=== PATIENT | female | born 1950 | race Caucasian/White ===

== ENCOUNTER 2017-03-13 12:00 | Emergency (ER) | payer SELFPAY ==
[2017-03-13 12:17] VITALS: O2SAT 96
--- NOTE | 2017-03-13 13:40 | C.PDOC ---
History Of Present Illness Tiara Arceo is a 66 year old female, with no significant past medical history, who presents to the emergency department complaining of swelling of lips and left side of face onset since last night. Patient reports she had a similar episode x3 months ago, but doesn't know what caused it then and is unsure what might have caused it this time. Patient denies any visual disturbances, rash, vesicles, neck pain, shortness of breath or difficulty swallowing. No further medical complaints. she has been on medication for blood pressure but this is unchanged for the past 4 years. PMD: None provided. Time Seen by Provider: 03/13/17 13:10 Chief Complaint (Nursing): Allergic Reaction History Per: Patient History/Exam Limitations: no limitations Onset/Duration Of Symptoms: Days (x1) Current Symptoms Are (Timing): Still Present Possible Cause: Unknown Associated Symptoms: Swelling (lips). denies: Skin Rash, Trouble Swallowing Past Medical History Reviewed: Historical Data, Nursing Documentation, Vital Signs Vital Signs: Last Vital Signs Temp 98.6 F 03/13/17 12:12 Pulse 75 03/13/17 12:12 Resp 20 03/13/17 12:12 BP 151/86 H 03/13/17 12:12 Pulse Ox 96 03/13/17 13:45 - Medical History PMH: HTN Surgical History: Cholecystectomy Family History: States: Unknown Family Hx - Social History Hx Tobacco Use: No Hx Alcohol Use: No Hx Substance Use: No Review Of Systems Eyes: Negative for: Vision Change ENT: Positive for: Mouth Swelling (lips). Negative for: Throat Swelling ( difficulty swallowing) Respiratory: Negative for: Shortness of Breath Musculoskeletal: Negative for: Neck Pain Skin: Negative for: Rash Physical Exam - Physical Exam Appears: Well, No Acute Distress Skin: Warm, Dry Head: Atraumatic, Normacephalic Eye(s): bilateral: Normal Inspection, PERRL, EOMI Ear(s): Bilateral: Normal Nose: Normal Oral Mucosa: Moist Tongue: Normal Appearing Lips: Swelling Throat: Normal Neck: Normal ROM, Supple Cardiovascular: Rhythm Regular, No Murmur Respiratory: Normal Breath Sounds (clear auscultation b/l), No Wheezing Gastrointestinal/Abdominal: Normal Exam, Soft, No Tenderness, No Guarding, No Rebound Back: Normal Inspection, No CVA Tenderness, No Vertebral Tenderness Extremity: Normal ROM, No Pedal Edema, No Deformity, No Swelling Neurological/Psych: Oriented x3 (alert) ED Course And Treatment - Laboratory Results Result Diagrams: 03/13/17 13:27 03/13/17 13:27 Lab Interpretation: No Acute Changes O2 Sat by Pulse Oximetry: 96 (RA) Pulse Ox Interpretation: Normal Progress Note: Patient treated with oral benadryl with some relief of symptoms. Reevaluation Time: 14:26 Reassessment Condition: Improved Medical Decision Making Medical Decision Making: Initial Impression: Allergic reaction Initial Plan: --CMP --CBC w/ differential --Benadryl 50 mg PO --reevaluation Disposition Counseled Patient/Family Regarding: Studies Performed, Diagnosis, Need For Followup - Disposition Referrals: [facility] [Outside] Disposition: HOME/ ROUTINE Disposition Time: 14:27 Condition: IMPROVED Additional Instructions: Take Benadryl 1-2 tablets every 6 hours for the next 2-3 days. Instructions: Angioedema (ED), Diphenhydramine (By mouth) Forms: [employer] ([place]) Print Language: CZECH - Clinical Impression Clinical Impression: Angioedema - Scribe Statement Eliseo Lundberg Provider Attestation: All medical record entries made by the Scribe were at my direction and personally dictated by me. I have reviewed the chart and agree that the record accurately reflects my personal performance of the history, physical exam, medical decision making, and the department course for this patient. I have also personally directed, reviewed, and agree with the discharge instructions and disposition.
[2017-03-13 13:41] LABS: BASO % 0.5 % (0.0-2.0); EOS # 0.2 K/uL (0.0-0.7); EOS % 2.7 % (0.0-4.0); HEMOGLOBIN 12.5 g/dL (11.0-16.0); LYMPH # 2.3 K/uL (1.0-4.3); MEAN CORPUSCULAR HEMOGLOBIN 29.6 pg (27.0-31.0); MEAN CORPUSCULAR HGB CONC 34.4 g/dL (33.0-37.0); MEAN PLATELET VOLUME 7.7 fL (7.2-11.7); MONO # 0.7 K/uL (0.0-0.8); NEUT % 47.8 % (50.0-75.0); NRBC % 0.1 % (0.0-2.0); RBC 4.24 Mil/uL (3.80-5.20); RED CELL DISTRIBUTION WIDTH 14.2 % (11.5-14.5); WHITE BLOOD COUNT 6.2 K/uL (4.8-10.8)
[2017-03-13 13:44] LABS: ALB/GLOB RATIO 1.1 (1.0-2.1); ALT/SGPT 26 U/L (9-52); AST/SGOT 21 U/L (14-36); BLOOD UREA NITROGEN 15 mg/dL (7-17); CALCIUM 9.3 mg/dl (8.6-10.4); GFR AFRICAN-AMERICAN > 60; GFR NON-AFRICAN AMERICAN > 60
[2017-03-13 14:28] VITALS: BP 151/87; PULSE 60; RESP 18; TEMP 97.8
== END 2017-03-13 14:34 | disposition home or self-care (01) ==
LOC: EDBD 12:00 → C.ER 12:00
DX: T78.3XXA Angioneurotic edema, initial encounter (principal); I10 Essential (primary) hypertension